=== PATIENT | male | born 1930 | race Caucasian/White ===

== ENCOUNTER → 2016-09-25 | Outpatient (CLI) | payer OTHER | LOC: MMPC 09:00 | DX: I10 Essential (primary) hypertension (principal); E78.5 Hyperlipidemia, unspecified; N40.0 Benign prostatic hyperplasia without lower urinary tract symptoms; E55.9 Vitamin D deficiency, unspecified ==

== ENCOUNTER → 2016-12-26 | Outpatient (CLI) | payer OTHER ==
--- NOTE | 2016-12-26 14:29 | EKG ---
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
[2016-12-26 16:32] LABS: BASOPHILS # (AUTO) 0.03 10*3/UL; BASOPHILS % (AUTO) 0.5 % (0-1); EOSINOPHILS # (AUTO) 0.24 10*3/UL; EOSINOPHILS % (AUTO) 3.8 % (0-8); HEMATOCRIT 46.1 % (42.0-52.0); LYMPHOCYTES # (AUTO) 1.11 10*3/uL; MEAN CORPUSCULAR HEMOGLOBIN 30.2 PG (27-31); MEAN CORPUSCULAR HGB CONC 32.5 g/dL (33-37); MEAN CORPUSCULAR VOLUME 92.8 FL (80-90); MEAN PLATELET VOLUME 10.8 FL (7.4-12.2); MONOCYTES # (AUTO) 0.79 10*3/UL (0.3-0.8); MONOCYTES % (AUTO) 12.4 % (5-15); NEUTROPHILS # (AUTO) 4.19 10*3/UL; NEUTROPHILS % (AUTO) 65.7 % (50-80); RED BLOOD COUNT 4.97 10^6/uL (4.70-6.10)
[2016-12-26 16:35] LABS: CALCIUM 9.4 mg/dL (8.7-10.7)
[2016-12-26 16:37] LABS: PLATELET MORPHOLOGY COMMENT NORMAL MORPHOLOGY (NORM); RBC MORPHOLOGY COMMENT NORMAL MORPHOLOGY (NORM); WBC MORPHOLOGY COMMENT NORMAL MORPHOLOGY (NORM)
== END ==
LOC: MOB LAB 14:19
DX: H43.822 Vitreomacular adhesion, left eye (principal); I10 Essential (primary) hypertension; Z01.810 Encounter for preprocedural cardiovascular examination; Z01.812 Encounter for preprocedural laboratory examination; E78.5 Hyperlipidemia, unspecified; E55.9 Vitamin D deficiency, unspecified; D69.6 Thrombocytopenia, unspecified
CPT/HCPCS: 36415; 80048; 85025; 93005; 93010; 99213; G0463